=== PATIENT | female | born 1950 | race Caucasian/White ===

== ENCOUNTER 2017-10-25 05:39 | Day surgery (SDC) | payer OTHER ==
[~2017-10-25] VITALS: Ht 165.1 cm; Wt 51.3 kg
[~2017-10-25 05:39] MED LIST: ASPIRIN81 M2 PO; ATIVAN0.5 MG PO; CO Q-10400 MG PO; CURCUMIN PO; HYDROCHLOROTHIA25 MG PO; LOPRESSOR25 MG PO; SELENIUM200 MCG PO; VITAMIN B-121000 MC3 PO; VITAMIN C1000 MG PO; VITAMIN D310000 UNI1 PO
[2017-10-25 06:19] VITALS: BP 153/90
[2017-10-25 08:55] VITALS: BP 147/73
[2017-10-25 09:56] VITALS: BP 126/74
== END 2017-10-25 10:10 | disposition home or self-care (01) ==
LOC: SDC 05:39
DX: N95.0 Postmenopausal bleeding (principal); Q51.2 Other doubling of uterus; Z85.3 Personal history of malignant neoplasm of breast; C95.91 Leukemia, unspecified, in remission; K21.9 Gastro-esophageal reflux disease without esophagitis; Z86.73 Personal history of transient ischemic attack (TIA), and cerebral infarction without residual deficits; I48.91 Unspecified atrial fibrillation; I10 Essential (primary) hypertension; E78.5 Hyperlipidemia, unspecified; I34.1 Nonrheumatic mitral (valve) prolapse; Z79.82 Long term (current) use of aspirin
CPT/HCPCS: 88305; J0690; J1100; J1885; J2250; J2405; J2710; J3010